=== PATIENT | male | born 1960 | race Caucasian/White ===

== ENCOUNTER → 2021-08-29 14:23 | Outpatient (BNVA) | payer OTHER, SELFPAY | PROVIDERS: Family Provider Family Medicine; Referring Provider Family Medicine; Visit Provider Orthopaedic Surgery | DX: M48.07 Spinal stenosis, lumbosacral region; M16.0 Bilateral primary osteoarthritis of hip | CPT/HCPCS: 72110; 73523 ==

== ENCOUNTER 2022-02-08 07:22 | Day surgery (SDC) | payer OTHER, SELFPAY ==
[2022-02-06 12:56] VITALS: BMI 31.2
[2022-02-08 07:39] VITALS: BP 140/119; PULSE 102; RESP 18; TEMP 36.5; O2SAT 95
--- NOTE | 2022-02-08 07:52 | W.PM.OPSFHP ---
Same Day Surgery H&P Indication for Procedure/HPI DATE OF PROCEDURE: February 08, 2022 CHIEF COMPLAINT/INDICATIONFOR SURGICAL PROCEDURE: Bowel issues PREOP DIAGNOSIS: Change in bowel habits PLANNED PROCEDURE: Operation Date: 02/08/22 09:00 Proposed Procedures p Colonoscopy 54651/r19.4(Not Applicable) - Mina Kenney MD 09/20/2021 This is pleasant 61 years old gentleman referred to my practice with history of change in bowel habits diarrhea alternating with constipation for quite a bit.? Patient reports that he had a previous colonoscopy remotely and was told it was normal.? He also had his gall bladder out.? He denies bleeding per rectum or history of colon cancer.? Is referred to my practice for consideration of diagnostic colonoscopy 02/08/2022 Patient comes today for diagnostic colonoscopy ROS All systems have been reviewed negative except as for the above or per problem list. Medications/Allergies* Home Medications Medication Instructions Recorded Confirmed Type lisinopril 20 1 tab PO DAILY 08/29/21 02/08/22 History mg-hydrochlorothiazide 25 mg tablet mirtazapine 15 mg tablet 7.5 mg PO DAILY 08/29/21 02/08/22 History omeprazole 20 mg capsule,delayed 20 mg PO DAILY 08/29/21 02/08/22 History release tamsulosin 0.4 mg capsule 0.4 mg PO DAILY 08/29/21 02/08/22 History trazodone 50 mg tablet 25 mg PO DAILY 08/29/21 02/08/22 History dicyclomine 10 mg capsule 10 mg PO BID 09/20/21 02/08/22 History Allergies/Adverse Reactions Allergy/AdvReac Type Severity Reaction Status Date / Time No Known Allergies Allergy Verified 02/08/22 07:52 Pertinent History/Comorbid Conditions* Social History Smoking and tobacco status: never smoked Second hand smoke exposure: No Smoking risk assessment/counseling performed?: No Alcohol intake: never Adopted: No Caregiver/support person: Yes Lives independently: No Household members: spouse Housing: House Marital status: Number of children: 2 Number of grandchildren: 9 Highest education level completed: High School Graduate service: No Current occupational status: retired Current occupational exposures/hazards: No Pets and animals: No History of recent travel: No Sexually active: Yes Current gender identity: Male Special eloise needs: No Agree to transfusion: Yes Pertinent Exam Findings alert, oriented x 3, regular rate & rhythm and procedure specific exam findings (Abdominal exam nontender nondistended soft) Recommendations Surgery/Procedure today (Colonoscopy with possible biopsy) Coding Level of Care Code Acute [employer] Supervisor for Peter Calderon
[2022-02-08] MEDS: sodium chloride 0.9% 1,000 ML 30 ML IV (07:55)
--- NOTE | 2022-02-08 08:06 | ANES.PREANE2 ---
Pre-Anesthetic Assessment Height/Weight: Height 1.8 m Weight 101.605 kg Temp Pulse Resp BP Pulse Ox O2 Del Method 97.7 F 102 H 18 140/119 95 02/08/22 07:39 02/08/22 07:39 02/08/22 07:39 02/08/22 07:39 02/08/22 07:39 02/08/22 07:39 Preop Diagnosis: Change in bowel habits Operation Date: 02/08/22 09:00 Proposed Procedures p Colonoscopy 38492/[id number](Not Applicable) - Mina Kenney MD Familial anesthetic complications: None Was Beta Po taken within 24 hours: N/A Was Clonidine taken within 24 hours: N/A Last intake: Intake Last Liquid Date 02/07/22 Last Liquid Time 22:00 Last Solid Date 02/06/22 Last Solid Time 21:00 Social No alcohol and No tobacco Exam alert, oriented x 3, clear to auscultation bilaterally and regular rate & rhythm Airway Submandibular: within normal limits Cervical ROM: within normal limits Mallampati: Class II Dentition: partials History/ROS No significant complaints Pulmonary None reported CV/HEM Hypertension None reported Hepatic None reported GI Gastroesophageal Reflux Disease (Well controlled ) Metabolic None reported Musc/skel None reported Neuropsych None reported Anesthetic Plan ASA status: 2 Anesthesia: Anesthesia Evaluation, General and MAC Other: I discussed with the patient risks, goals, and benefits of MAC and general anesthesia. We discussed spectrum of MAC anesthesia including conversion to general as well as possibility of recall of intraoperative stimuli including discomfort/pain. Patient agrees to proceed with MAC. Risk of > 500 ml blood loss (7ml/kg in children): No Medications/Allergies Home Medications Medication Instructions Recorded Confirmed Last Taken Type lisinopril 20 1 tab PO DAILY 08/29/21 02/08/22 02/07/22 History mg-hydrochlorothiazide 25 mg tablet mirtazapine 15 mg tablet 7.5 mg PO DAILY 08/29/21 02/08/22 02/07/22 History omeprazole 20 mg capsule,delayed 20 mg PO DAILY 08/29/21 02/08/22 02/07/22 History release tamsulosin 0.4 mg capsule 0.4 mg PO DAILY 08/29/21 02/08/22 02/07/22 History trazodone 50 mg tablet 25 mg PO DAILY 08/29/21 02/08/22 02/07/22 History dicyclomine 10 mg capsule 10 mg PO BID 09/20/21 02/08/22 02/07/22 History Allergies Allergy/AdvReac Type Severity Reaction Status Date / Time No Known Allergies Allergy Verified 02/08/22 07:52 Current Medications Generic Name Dose Route Start Last Admin Trade Name Rgq PRN Reason Stop Dose Admin Sodium Chloride 1,000 mls @ 30 mls/hr 02/08/22 07:45 02/08/22 07:55 Sodium Chloride 0.9% IV 02/09/22 07:44 30 mls/hr .Q24H KELLY Administration PFSH Anesthesia Social History Smoking and tobacco status: never smoked Second hand smoke exposure: No Smoking risk assessment/counseling performed?: No Alcohol intake: never Adopted: No Caregiver/support person: Yes Lives independently: No Household members: spouse Housing: House Marital status: Number of children: 2 Number of grandchildren: 9 Highest education level completed: High School Graduate service: No Current occupational status: retired Current occupational exposures/hazards: No Pets and animals: No History of recent travel: No Sexually active: Yes Current gender identity: Male Special eloise needs: No Agree to transfusion: Yes Data Anesthesia Cardiac Studies: No Data to Display
[2022-02-08 08:56] VITALS: BP 109/75; PULSE 86; RESP 14; TEMP 36.1; O2SAT 91
[2022-02-08 09:20] VITALS: BP 116/72; PULSE 88; RESP 18; O2SAT 92
--- NOTE | 2022-02-08 14:35 | ANE.PACU2 ---
Inpatient post-anesthesia follow up: Airway intact: Yes Vital signs: Temperature 97 F Pulse Rate 88 Respiratory Rate 18 Blood Pressure 116/72 Pulse Oximetry 92 Oxygen Delivery Me thod Room Air Oxygen Flow Rate Fraction of Inspir ed Oxygen Hydration adequate: Yes Nausea and vomiting: No Pain level: 1 Mental status: Baseline
== END 2022-02-08 09:25 | disposition home or self-care (01) ==
PROVIDERS: PCP Family Medicine; Visit Provider Surgery
PROC: 0DJD8ZZ Inspection of Lower Intestinal Tract, Via Natural or Artificial Opening Endoscopic (ICD-10-PCS; CPT 45378; principal; 2022-02-08 09:00)
DX: K52.9 Noninfective gastroenteritis and colitis, unspecified (principal); K62.4 Stenosis of anus and rectum; K57.30 Diverticulosis of large intestine without perforation or abscess without bleeding; K21.9 Gastro-esophageal reflux disease without esophagitis; I10 Essential (primary) hypertension
CPT/HCPCS: 45378; 82274; 83630; 87493; 87506; J2704; J7030

== ENCOUNTER → 2025-05-17 12:23 | Outpatient (BNVA) | payer MEDICARE, SELFPAY | PROVIDERS: PCP Family Medicine; Visit Provider Nurse Practitioner Family | DX: L73.8 Other specified follicular disorders (principal); L91.8 Other hypertrophic disorders of the skin; L82.1 Other seborrheic keratosis; D18.01 Hemangioma of skin and subcutaneous tissue; L81.4 Other melanin hyperpigmentation; L57.8 Other skin changes due to chronic exposure to nonionizing radiation; D48.5 Neoplasm of uncertain behavior of skin; L57.0 Actinic keratosis | CPT/HCPCS: 11102; 17000; 99203 ==